=== PATIENT | male | born 1955 | race Caucasian/White ===

== ENCOUNTER 2023-04-29 12:04 | Outpatient (CLI) | payer MEDICARE ==
[~2023-04-29 12:04] MED LIST: LEVO125T68 PO; MESA1.2T3 PO; PHEN100C12 PO; ROSU5TAB12 PO
[2023-04-29 12:38] LABS: BASOPHILS % (AUTO) 0.7 % (0-1); EOSINOPHILS % (AUTO) 0.5 % (0-6); HEMATOCRIT 39.8 % (42.0-52.0); LYMPHOCYTES # (AUTO) 1.3 X10'3 (1.1-4.8); LYMPHOCYTES % (AUTO) 23.3 % (21-51); MEAN CORPUSCULAR HEMOGLOBIN 29.9 PG (27.0-31.0); MEAN CORPUSCULAR HGB CONC 32.7 g/dL (33.0-36.5); MEAN CORPUSCULAR VOLUME 91.2 FL (78-98); MEAN PLATELET VOLUME 7.6 FL (7.4-10.4); MONOCYTES # (AUTO) 0.5 X10'3 (0-0.9); MONOCYTES % (AUTO) 8.9 % (2-12); NEUTROPHILS # (AUTO) 3.6 X10'3 (1.8-7.7); NEUTROPHILS % (AUTO) 66.6 % (42-75); PLATELET COUNT 301 X10'3 (140-440); RED BLOOD COUNT 4.36 X10'6 (4.70-6.10); RED CELL DISTRIBUTION WIDTH 13.9 % (11.5-14.5); WHITE BLOOD COUNT 5.4 X10'3 (4.5-11.0)
[2023-04-29 12:48] LABS: APTT 27 SECONDS (22-32); PROTHROMBIN TIME 10.6 SECONDS (9.0-12.0)
[2023-04-29 13:04] LABS: ALANINE AMINOTRANSFERASE 27 U/L (12-78); ALBUMIN 3.6 G/DL (3.4-5.0); ALBUMIN/GLOBULIN RATIO 1.1 (1.1-1.5); ALKALINE PHOSPHATASE 104 IU/L (46-116); ANION GAP 6 (8-16); ASPARTATE AMINO TRANSFERASE 20 U/L (10-37); BILIRUBIN,TOTAL 0.2 MG/DL (0.1-1.0); BLOOD UREA NITROGEN 19 MG/DL (7-18); BUN/CREATININE RATIO 24.1 (10.0-20.0); CALCIUM 8.5 MG/DL (8.5-10.1); CHLORIDE 105 MMOL/L (99-107); CREATININE 0.79 MG/DL (0.60-1.10); GLUCOSE 91 MG/DL (70-104); POTASSIUM 4.3 MMOL/L (3.5-5.1); PRO BRAIN NATRIURETIC PEPTIDE 222 PG/ML (0-125); SODIUM 139 MMOL/L (135-145); TOTAL CARBON DIOXIDE 28.4 MMOL/L (24-32); eGFR > 90 ML/MIN
[2023-04-29] MEDS ORDERED: IODIXANOL 320 MG/ML INFUS..BTL 100ML IV ONE (13:19)
== END 2023-04-29 23:59 | disposition home or self-care (01) ==
LOC: RAD 12:04
PROVIDERS: ATTEND Internal Medicine Cardiovascular Disease
DX: I35.0 Nonrheumatic aortic (valve) stenosis (principal); R06.02 Shortness of breath; I65.29 Occlusion and stenosis of unspecified carotid artery
CPT/HCPCS: 36415; 71046; 71275; 74174; 75572; 80053; 83880; 85025; 85610; 85730; 94010; 94727; 94729; A6258; J3490; Q9967